=== PATIENT | female | born 1990 | race Two or more races ===

== ENCOUNTER 2025-05-21 03:18 | Emergency (ER) | payer MEDICAID, OTHER ==
[~2025-05-21] VITALS: Ht 149.9 cm; Wt 65.0 kg
[2025-05-21] MEDS: diphenhdrAMINE HCL 50 MG/1 ML VL IV ONE (04:08)
[2025-05-21] MEDS: SODIUM CHLORIDE 0.9% 1,000 ML IV ONE (04:08)
[2025-05-21] MEDS: FAMOTIDINE (10MG/ML) 2ML VL IV ONE (04:08)
[2025-05-21] MEDS: methylPREDNISolone SOD SUCC 125 MG/2 ML VL IV ONE (04:09)
[2025-05-21] MEDS: LORazepam 2MG/ML-1ML VIAL IV ONE (04:12)
[2025-05-21] MEDS: LORazepam 2MG/ML-1ML VIAL ONE (04:13)
--- NOTE | 2025-05-21 04:45 | ED.PDOC ---
HPI Allergic reaction HPI Comments PT BIBA FROM HOME C/O RASH X 1 WEEK. PT REPORTS D/C HER PHENTERMINE, AFTER WHICH SHE BEGAN TO GET A FULL BODY RASH ACCOMPANIED BY HIVES X 1 WEEK. PT WAS TREATED AT [place] AND SENT HOME WITH INSTRUCTIONS TO TAKE BENADRYL WITH NO RELIEF. PT A&OX4, PT TACHY AT 130, ALL OTHER VSS, RR EVEN AND UNLABORED ON RA. Chief Complaint: Rash Time Seen by MD: 03:46 Reviewed Notes: Nurses Notes, Medications, Allergies Allergies: Coded Allergies: NO KNOWN ALLERGIES (Unverified , 05/21/25) Information Source: Patient Mode of Arrival: EMS Past Medical History PAST MEDICAL HISTORY: Denies Surgical History: Denies all surgeries SLAG DUMPER History: No Pertinent SLAG DUMPER History Family History Family History: Reviewed,noncontributory to illness Social History Smoker: Non-Smoker Alcohol: Denies ETOH Use Drugs: Denies Drug Use Constitutional: denies: chills, diaphoresis, fatigue, fever, malaise, sweats, weakness, others EENTM: denies: blurred vision, double vision, ear bleeding, ear discharge, ear drainage, ear pain, ear ringing, eye pain, eye redness, hearing loss, mouth pain, mouth swelling, nasal discharge, nose bleeding, nose congestion, nose pain, photophobia, tearing, throat pain, throat swelling, voice changes, others Respiratory: denies: cough, hemoptysis, orthopnea, SOB at rest, shortness of breath, SOB with excertion, stridor, wheezing, others Cardiovascular: denies: chest pain, dizzy spells, diaphoresis, Dyspnea on exertion, edema, irregular heart beat, left arm pain, lightheadedness, palpitations, PND, syncope, others Gastrointestinal: denies: abdomen distended, abdominal pain, blood streaked bowels, constipated, diarrhea, dysphagia, difficulty swallowing, hematemesis, melena, nausea, poor appetite, poor fluid intake, rectal bleeding, rectal pain, vomiting, others Genitourinary: denies: abnormal vagina bleeding, burning, dyspareunia, dysuria, flank pain, frequency, hematuria, incontinence, pain, , vagina discharge, urgency, others Neurological: denies: dizziness, fainting, headache, left sided numbness, left sided weakness, numbness, paresthesia, pre-existing deficit, right sided numbness, right sided weakness, seizure, speech problems, tingling, tremors, weakness, others Musculoskeletal: denies: back pain, gout, joint pain, joint swelling, muscle pain, muscle stiffness, neck pain, others Integumetry: reports: rash; denies: bruises, change in color, change in hair/nails, dryness, laceration, lesions, lumps, wounds, others Allergic/Immunocompromised: denies: Difficulty Healing, Frequent Infections, Hives, Itching, others Hematologic/Lymphatic: denies: anemia, blood clots, easy bleeding, easy bruising, swollen glands, others Endocrine: denies: excessive hunger, excessive sweating, excessive thirst, excessive urination, flushing, intolerance to cold, intolerance to heat, unexplained weight gain, unexplained weight loss, others Psychiatric: denies: anxiety, bipolar disorder, depression, hopeless, panic disorder, schizophrenia, sleepless, suicidal, others Physical Exam General Appearance: No Apparent Distress, Normal HEENT: Pharynx Normal Neck: Full Range of Motion, Non-Tender Respiratory: Lungs Clear, No Respiratory Distress, Normal Breath Sounds Cardiovascular: No Edema, No JVD, No Murmur, No Gallop, Normal Peripheral Pul ses, Tachycardia Breast Exam: Deferred Gastrointestinal: No Organomegaly, Non Tender, No Pulsatile Mass, Normal Bowel Sounds, Soft Genitalia: Deferred Pelvic: Deferred Rectal: Deferred Extremities: Normal capillary refill, Normal inspection, Normal range of motion, Non-tender, No pedal edema Musculoskeletal : Apperance: Normal Neurologic: Alert, No Motor Deficits, Normal Affect, Normal Mood, No Sensory Deficits Cerebellar Function: Normal Reflexes: Normal Skin: Dry, Normal Color, Rash (Hives on abdomen, and trunk no noted excoriations lesions or drainage), Warm Lymphatic: No Adenopathy Was a procedure done? Was a procedure done?: No Differential diagnosis (all) Differential Diagnosis: Anaphylaxis, Angioedema, Bronchospasm, Drug Reaction, Urticaria X-Ray, Labs, Meds, VS Vital Signs Date Time Temp Pulse Resp B/P (MAP) Pulse Ox O2 Delivery O2 Flow Rate FiO2 05/21/25 03:31 98.6 130 18 138/76 (96) 99 98.6 Current Medications Medications (Trade) Dose Ordered Sig/Rebeca Route Start Time Stop Time Status Last Admin Sodium Chloride 1,000 ml @ 1,000 mls/hr Q1H ONCE IV 05/21/25 04:00 05/21/25 04:59 DC 05/21/25 04:08 Methylprednisolone Sodium Succinate (Solu Medrol) 125 mg ONCE ONCE IV 05/21/25 04:00 05/21/25 04:01 DC 05/21/25 04:09 Famotidine (Pepcid Injection) 20 mg ONCE ONCE IV 05/21/25 04:00 05/21/25 04:01 DC 05/21/25 04:08 Diphenhydramine HCl (Benadryl Injection) 25 mg ONCE ONCE IV 05/21/25 04:00 05/21/25 04:01 DC 05/21/25 04:08 Lorazepam (Ativan Inj) 1 mg ONCE ONCE IV 05/21/25 04:15 05/21/25 04:16 DC 05/21/25 04:12 X-Ray, Labs, Meds, VS Comment Patient was given normal saline 1000 mL bolus, Solu-Medrol 125 mg IV push, Pepcid 20 mg IV push and a total of Benadryl 50 mg IV push. Patient was also given Ativan 1 mg IV. She reports improvement in symptoms requesting discharge at this time. Advised to continue the medications she has at home as prescribed. Advised to follow up with her PCP given them a call on Thursday consider referral to an casket coverer symptoms persist. ER return precautions given patient indicates understanding agrees with discharge plan of care Time of 1ST Reevaluation: 03:46 Reevaluation 1ST: Unchanged Time of 2ND Reevaluation: 05:47 Reevaluation 2ND: Improved Patient Education/Counseling: Diagnosis, Treatment, Prognosis, Need For Follow Up Family Education/Counseling: No Family Present SEPSIS Sepsis Screen Date sepsis recognized/suspect: May 21, 2025 Time Sepsis recognized/suspect: 324 Recent Procedure: No On Antibiotic Therapy: No Respiratory Rate >20: No Heart Rate >90: Yes Temp<36 C (96.8 F) or >38.3 C: No SBP <90 or MAP <65 mmHG: No New Acute Mental Status Change: No Is the patient on CPAP, BIPAP,: No Vital Signs Date Time Temp Pulse Resp B/P (MAP) Pulse Ox O2 Delivery O2 Flow Rate FiO2 05/21/25 03:31 98.6 130 18 138/76 (96) 99 98.6 Medications Medications Dose Ordered Sig/Rebeca Route Start Time Stop Time Status Last Admin Dose Admin Diphenhydramine HCl 25 mg ONCE ONCE IV 05/21/25 04:00 05/21/25 04:01 DC 05/21/25 04:08 Famotidine 20 mg ONCE ONCE IV 05/21/25 04:00 05/21/25 04:01 DC 05/21/25 04:08 Lorazepam 1 mg ONCE ONCE IV 05/21/25 04:15 05/21/25 04:16 DC 05/21/25 04:12 Methylprednisolone Sodium Succinate 125 mg ONCE ONCE IV 05/21/25 04:00 05/21/25 04:01 DC 05/21/25 04:09 Sodium Chloride 1,000 ml @ 1,000 mls/hr Q1H ONCE IV 05/21/25 04:00 05/21/25 04:59 DC 05/21/25 04:08 Departure 1 Departure Time of Disposition: 05:45 Impression: Primary Impression: Allergic reaction Qualified Codes: T78.40XA - Allergy, unspecified, initial encounter Disposition: 01 HOME / SELF CARE / HOMELESS Condition: Stable Discharged With: Self Critical Care Note Critical Care Time?: No Stability Stability form required: BONNIE De Jesus [facility] May 21, 2025 04:45
[2025-05-21 07:15] VITALS: BP 121/64; PULSE 93; RESP 18; TEMP 97.8; O2SAT 96
== END 2025-05-21 07:20 | disposition home or self-care (01) ==
LOC: ER 03:18 → EDBD 03:18 → ER 07:17
DX: T78.49XA Other allergy, initial encounter (principal); L50.9 Urticaria, unspecified; X58.XXXA Exposure to other specified factors, initial encounter
CPT/HCPCS: 96361; 96374; 96375; 99284; J1200; J2060; J2919; J3490; J7030

== ENCOUNTER 2025-07-17 16:28 | Emergency (ER) | payer SELFPAY ==
[~2025-07-17] VITALS: Ht 149.9 cm; Wt 65.6 kg
[2025-07-17 16:32] VITALS: BP 138/81; PULSE 79; RESP 16; TEMP 98.1; O2SAT 97
[2025-07-17] MEDS ORDERED: PRED20TA2 PO (17:19)
[2025-07-17] MEDS ORDERED: FAMO20TA10 PO (17:19)
[2025-07-17] MEDS ORDERED: CETI5TAB6 PO (17:19)
[2025-07-17] MEDS ORDERED: HYDR-4924 PO (17:19)
[2025-07-17] MEDS ORDERED: TRIO1TP EX (17:19)
--- NOTE | 2025-07-17 17:20 | ED.PDOC ---
History of Present Illness(SKN HPI Comments 35 year old female with no past medical history presents to the ED with a chief complaint of rash onset 2 months. Patient has been experiencing rash with hives for the past 2 months, has been seen in this ED on 05/21/25, was treated for rash and discharged home. She has been seen by Nick, is currently taking Benadryl 3 times a day. She noticed rash, hives, on bilateral legs, bilateral arms, abdominal region, this morning, itchiness worsened, came to ED. No other symptoms or modifying factors present at this time. Patient denies any fever, cough, difficulty swallowing, or shortness of breath Denies fever chills night sweats nausea vomiting diarrhea Denies persistent loss of appetite nor unintentional weight loss over the past 3 months Denies history of STI Denies cough and cold-like symptoms Denies recent travel Denies sick contact with similar rash Denies new topical creams/lotions/shampoos/detergents Denies noticing any insects Denies bruising bleeding anywhere Denies chronic skin issues or family history of skin issues Chief Complaint: Allergic Reaction Time Seen by MD: 17:15 History of Present Illness: Medications, Allergies Allergies: Coded Allergies: NO KNOWN ALLERGIES (Unverified , 05/21/25) Home Meds Active Scripts Triamcinolone Acetonide (Triamcinolone Acetonide) 0.1 % Cre, 1 APPLIC EX BID for 5 Days, #60 GRAMS 0 Refills Prov:ALEJANDRO MORROW NP 07/17/25 Cetirizine Hcl (Cetirizine Hcl) 5 Mg Tab, 10 MG PO DAILY for 10 Days, #20 TAB 0 Refills Prov:ALEJANDRO MORROW NP 07/17/25 Famotidine (PEPCID TABLET) 20 Mg Tb, 2 TAB PO DAILY for 10 Days, #20 TAB 0 Refills Prov:ALEJANDRO MORROW NP 07/17/25 Prednisone (Prednisone) 20 Mg Tab, 60 MG PO DAILY for 5 Days, #15 TAB 0 Refills Prov:ALEJANDRO MORROW NP 07/17/25 Hydroxyzine HCl (Hydroxyzine Hydrochloride) 25 Mg Tab, 25 MG PO Q6HP PRN for 14 Days, #56 TAB 0 Refills Prov:ALEJANDRO MORROW NP 07/17/25 Information Source: Patient Mode of Arrival: Ambulatory Severity: Moderate Timing: Months Duration: Since onset Prehospital treatment: None Location: Extremities Mechanism: Medication Developed: Rash Object: None Condition of Object: None Wound Type: None Immunization Status of Animal: Current Tetanus: UTD History of: None Associated Signs and Symptoms: Redness Past Medical History PAST MEDICAL HISTORY: Denies Surgical History: Denies all surgeries MEDICAL OFFICE PROFESSIONAL INSTRUCTOR History: No Pertinent MEDICAL OFFICE PROFESSIONAL INSTRUCTOR History Family History Family History: Reviewed,noncontributory to illness Social History Smoker: Non-Smoker Alcohol: Denies ETOH Use Drugs: Denies Drug Use Lives In: Home All Other Systems: Reviewed and Negative (as per HPI) Physical Exam General Appearance: No Apparent Distress, Normal HEENT: Normal ENT Inspection, Pharynx Normal, TMs Normal Neck: Full Range of Motion, Non-Tender, Normal, Normal Inspection Respiratory: Chest Non-Tender, Lungs Clear, No Accessory Muscle Use, No Respiratory Distress, Normal Breath Sounds Cardiovascular: No Edema, No JVD, No Murmur, No Gallop, Normal Peripheral Pulses, Regular Rate/Rhythm Breast Exam: Deferred Gastrointestinal: No Organomegaly, Non Tender, No Pulsatile Mass, Normal Bowel Sounds, Soft Genitalia: Deferred Pelvic: Deferred Rectal: Deferred Extremities: No calf tenderness, Normal capillary refill, Normal inspection, Normal range of motion, Non-tender, No pedal edema Musculoskeletal : Apperance: Normal Neurologic: Alert, living supervisor II-XII nml as Tested, No Motor Deficits, Normal Affect, Normal Mood, No Sensory Deficits Cerebellar Function: Normal Reflexes: Normal Skin: Dry, Rash (scattered hives) Lymphatic: No Adenopathy Was a procedure done? Was a procedure done?: No Differential Diagnosis (INTG) Differential Diagnosis: Other X-Ray, Labs, Meds, VS Vital Signs Date Time Temp Pulse Resp B/P (MAP) Pulse Ox O2 Delivery O2 Flow Rate FiO2 07/17/25 16:32 98.1 79 16 138/81 97 98.1 X-Ray, Labs, Meds, VS Comment 35 year old female with no past medical history presents to the ED with a chief complaint of rash onset 2 months. Patient arrives alert and oriented, ABC's intact, afebrile, vital signs stable, saturating well in room air Additional MDM Review of External, Non-ED records: External records reviewed. Discussion with independent historian (EMS, family) history obtained from the patient/parents (if applicable) at bedside Chronic conditions affecting care: None Social determinants of health affecting care: None I considered escalation of care to admission for this patient, however given the reassuring workup, the patient is safe for outpatient management. On reevaluation, patient had symptomatic improvement. Patient is stable for discharge at this time. External notes reviewed. Test results and diagnostic imaging interpreted. All diagnostic findings, discharge care, education and instructions provided Follow-up with PCP in 2 to 3 days Patient verbalized understanding and agreed to treatment plan Vital signs stable, afebrile, no acute distress noted Patient ambulatory with strong steady gait Advised to return precautions for any new or worsening symptoms, return to ER immediately for re-evaluation Patient is aware that the purpose of this visit was for an acute medical leidy gency requiring emergent stabilization. Chronic conditions, including malignancies have not been ruled out. Patient is instructed to follow up with PCP as directed and discharge instructions for continued care and workup. If unable to arrange follow-up, patient is to return to the emergency department for reassessment. Patient (parent or legal guardian if applicable) was given v erbal and written discharge instructions and acknowledges understanding. Time of 1ST Reevaluation: 17:45 Reevaluation 1ST: Improved Patient Education/Counseling: Diagnosis, Treatment Family Education/Counseling: No Family Present SEPSIS Sepsis Screen Date sepsis recognized/suspect: Jul 17, 2025 Time Sepsis recognized/suspect: 1633 Recent Procedure: No On Antibiotic Therapy: No Respiratory Rate >20: No Heart Rate >90: No Temp<36 C (96.8 F) or >38.3 C: No SBP <90 or MAP <65 mmHG: No New Acute Mental Status Change: No Is the patient on CPAP, BIPAP,: No Vital Signs Date Time Temp Pulse Resp B/P (MAP) Pulse Ox O2 Delivery O2 Flow Rate FiO2 07/17/25 16:32 98.1 79 16 138/81 97 98.1 Departure 1 Departure Time of Disposition: 17:19 Impression: Primary Impression: Urticaria Disposition: HOME / SELF CARE / HOMELESS Condition: Stable e-Prescriptions Triamcinolone Acetonide (Triamcinolone Acetonide) 0.1 % Cre 1 APPLIC EX BID for 5 Days, #60 GRAMS 0 Refills Prov: ALEJANDRO MORROW ASSISTANT SOFTBALL COACH 07/17/25 Cetirizine Hcl (Cetirizine Hcl) 5 Mg Tab 10 MG PO DAILY for 10 Days, #20 TAB 0 Refills Prov: ALEJANDRO MORROW NP 07/17/25 Famotidine (PEPCID TABLET) 20 Mg Tb 2 TAB PO DAILY for 10 Days, #20 TAB 0 Refills Prov: ALEJANDRO MORROW NP 07/17/25 Prednisone (Prednisone) 20 Mg Tab 60 MG PO DAILY for 5 Days, #15 TAB 0 Refills Prov: ALEJANDRO MORROW NP 07/17/25 Hydroxyzine HCl (Hydroxyzine Hydrochloride) 25 Mg Tab 25 MG PO Q6HP PRN for 14 Days, #56 TAB 0 Refills Prov: ALEJANDRO MORROW NP 07/17/25 Discharged With: Self Critical Care Note Critical Care Time?: No Stability Stability form required: No Heart Score Heart Score: Heart Score Response (Comments) Value History N/A 0 EKG N/A 0 Age N/A 0 Risk Factors N/A 0 Troponin N/A 0 Total 0 I personally scribed for ALEJANDRO MORROW NP ([email or web address]) on 07/17/25 at 17:20. Electronically submitted by Arline Costa ([email or web address]). ALEJANDRO MORROW NP Jul 17, 2025 17:20
== END 2025-07-17 17:50 | disposition home or self-care (01) ==
LOC: ER 16:28
DX: L50.9 Urticaria, unspecified (principal); R21 Rash and other nonspecific skin eruption